=== PATIENT | female | born 1945 | race Caucasian/White ===

== ENCOUNTER 2016-12-24 08:10 | Inpatient (IN) | payer OTHER ==
[2016-12-16 13:00] VITALS: BMI 26.0
[2016-12-16 13:01] LABS: BASO % 0.4 %; BASO ABS # 0.04 K/uL (0-0.2); COMPLETE YES; HEMATOCRIT 37.7 % (37-47); IG% 0.2 %; LYMPH % 18.1 %; LYMPH ABS # 1.69 K/uL (1.2-3.4); MEAN CELL VOLUME 82.9 fL (80-100); MEAN CORPUSCULAR HEMOGLOBIN 27.7 pg (25-34); MEAN CORPUSCULAR HGB CONC 33.4 g/dl (32-36); MEAN PLATELET VOLUME 9.5 fL (7.4-10.4); MONO % 7.7 %; NEUT % 70.6 %; PLATELET COUNT 221 K/uL (130-400); RED BLOOD COUNT 4.55 M/uL (4.2-5.4); WHITE BLOOD COUNT 9.32 K/uL (4.8-10.8)
[2016-12-16 13:25] LABS: ESTIMATED AVERAGE GLUCOSE 177 mg/dl; HA1C FLAG Normal (Normal); PROTHROMBIN TIME (PATIENT) 10.2 SECONDS (9.0-12.0)
--- NOTE | 2016-12-16 13:38 | PAT Medication Instructions ---
Service Date Dec 16, 2016. Current Home Medication List Aspirin (Aspirin Ec), 81 MG PO QPM Atenolol (Tenormin), 25 MG PO Glipizide (Glipizide Er), 1 TAB PO QAM Omeprazole (Prilosec), 20 MG PO QAM Sitagliptin Phosphate (Januvia), 100 MG PO QAM Medication Instructions For Your Scheduled Surgery - Hold the following medications the morning of surgery: Glipizide (Glipizide Er), 1 TAB PO QAM Sitagliptin Phosphate (Januvia), 100 MG PO QAM - Take the following medications the morning of surgery with a sip of water: Omeprazole (Prilosec), 20 MG PO QAM - Take the following medications as scheduled the night before surgery: Aspirin (Aspirin Ec), 81 MG PO QPM (okay to continue per surgeon) Atenolol (Tenormin), 25 MG PO QPM If you have any questions please call us at [phone] or [phone] or [phone]
[2016-12-16 13:42] LABS: BUN/CREATININE RATIO 25.7 (10-20); CALCIUM 8.3 mg/dl (8.5-10.1); CREATININE 0.5 mg/dl (0.60-1.20); POTASSIUM 4.2 mmol/L (3.5-5.1)
--- NOTE | 2016-12-16 14:08 | DIAGNOSTIC IMAGING REPORT ---
CHEST PREADMISSION(PA/LAT) CLINICAL HISTORY: 71 years-old Female presenting with preoperative assessment. TECHNIQUE: PA and lateral views of the chest were obtained. COMPARISON: None. FINDINGS: Cardiomediastinal silhouette normal. Lungs and pleural spaces clear. Degenerative changes of the thoracic spine. Upper abdomen normal. IMPRESSION: 1. No acute cardiopulmonary disease. Electronically signed by: Vu Avalos M.D. 12/16/2016 2:06 PM Dictated Date/Time: 12/16/2016 2:06 PM
--- NOTE | 2016-12-23 16:50 | HISTORY & PHYSICAL EXAMINATION ---
DATE OF ADMISSION: 12/24/2016 HISTORY OF PRESENT ILLNESS: The patient presents as a very pleasant 71-year-old white female, 5 feet inches 7 and 160 pounds with complaints of ongoing left knee pain. She has been nonresponsive to conservative therapy and presents after failing attempts at conservative management including physical therapy, anti-inflammatories, relative rest, activity modification and presents with severe tricompartmental degenerative joint disease, medial compartment DJD, subchondral sclerosis, osteophyte formation, varus shift of the knee for total knee arthroplasty after thorough discussion of risks and complications. PAST MEDICAL HISTORY: Consistent that of a heart palpitations, noninsulin dependent diabetes. FAMILY HISTORY: Unremarkable and noncontributory. SOCIAL HISTORY: The patient denies history of smoking, alcohol use or recreational drug use. PAST SURGICAL HISTORY: Unremarkable. ALLERGIES: IODINE. REVIEW OF SYSTEMS: Otherwise unremarkable. See history of present illness for pertinent positives. PHYSICAL EXAMINATION: GENERAL: A very pleasant 71-year-old white female, alert and oriented x3. HEENT: Atraumatic, normocephalic. HEART: Regular at 70 beats per minute. No murmurs noted. LUNGS: Clear without rales, rhonchi or wheeze noted. ABDOMEN: Soft, nontender, nondistended. Bowel sounds are present in all 4 quadrants. RECTAL: No rectal examination was performed. MUSCULOSKELETAL: Consistent with that of severe end-stage DJD about left knee with varus alignment. The patient has failed attempts at conservative management. PLAN: Total knee arthroplasty, postoperative pain management, DVT prophylaxis, antibiotics as noted above.
[~2016-12-24] VITALS: Ht 170.2 cm; Wt 76.0 kg
[~2016-12-24 08:10] MED LIST: ACETAMINOPHEN 500 MG TAB PO SCH; ASPI81TA28 PO; ATEN-173 PO; BUPIVACAINE 0.25% 30 ML VIAL ONE; BUPIVACAINE 0.5 % 5 MG/1 ML PF 10ML VIAL ONE; CEFAZOLIN 1000MG/55 ML D5W 55 ML IV SCH; CeleBREX 200 MG CAP PO SCH; DEXAMETHASONE 4 MG TAB PO SCH; FAMOTIDINE 20 MG TAB PO SCH; GABAPENTIN 300 MG CAP PO SCH; GLIP2.5T11 PO; LACTATED RINGER'S 1000ML 1,000 ML IV SCH; LACTATED RINGER'S 1000ML 500 ML IV ONE; LACTATED RINGER'S 1000ML IV SCH; METOCLOPRAMIDE HCL 10 MG TAB PO SCH; PRLSR20 PO; ROPIVACAINE 5MG/ML 30 ML 150 MG, BUPIVACAINE/EPINEPHR 0.5% MPF 30 ML, KETOROLAC TROMETH... INFIL SCH; SITA100T3 PO
--- NOTE | 2016-12-24 08:12 | History & Physical Bridge Note ---
H&P Re-Evaluation Bridge Note: I have examined the patient, reviewed the History & Physical and in the interval since the performance of the History & Physical I have noted the following changes of clinical significance: No changes noted
[2016-12-24 09:21] VITALS: BP 136/66; PULSE 71; TEMP 36.9; O2SAT 100; Ht 170.2 cm; Wt 76.0 kg
[2016-12-24] MEDS ORDERED: MIDAZOLAM HCL 1 MG/ML 2ML VIAL ONE (12:27)
[2016-12-24] MEDS ORDERED: LIDOCAINE HCL 2% 2 ML VIAL (20MG/ML) ONE (12:27)
[2016-12-24] MEDS ORDERED: PROPOFOL IV EMULSION 10 MG/ML 20 ML VIAL IV ONE (12:27)
[2016-12-24] MEDS ORDERED: DEXAMETHASONE SOD INJ 4 MG/ML VIAL ONE (12:27)
[2016-12-24] MEDS ORDERED: ONDANSETRON INJ 2 MG/ML 2 ML VIAL ONE (12:27)
[2016-12-24] MEDS ORDERED: FENTANYL CITRATE INJ 50 MCG/1 ML 2 ML VIAL ONE (12:27)
[2016-12-24] MEDS ORDERED: POVIDONE-IODINE OP SOLN 30 ML BTL ONE (12:32)
[2016-12-24] MEDS ORDERED: BACITRACIN 50000 UNIT VIAL ONE (12:32)
[2016-12-24] MEDS ORDERED: ORTHO JOINT ANESTHETIC ONE (12:32)
[2016-12-24] MEDS: TRANEXAMIC ACID INJ 1,000 MG in SODIUM CHLORIDE 0.9% 100ML 100 ML IV SCH ×2 (13:41→17:45)
[2016-12-24] MEDS ORDERED: LABETALOL HCL IV 5 MG/ML 20ML IV PRN (14:15)
[2016-12-24] MEDS ORDERED: HYDROmorphone INJ 1 MG/ML SYR IV PRN (14:15)
[2016-12-24] MEDS ORDERED: PROMETHAZINE HCL INJ 12.5 MG in SODIUM CHLORIDE 0.9% 50ML 50 ML IV PRN (14:15)
[2016-12-24] MEDS ORDERED: NALOXONE HCL 0.4 MG/1 ML VIAL/CARP IV PRN (14:15)
[2016-12-24] MEDS ORDERED: FLUMAZENIL 0.1 MG/1 ML 10 ML VIAL IV PRN (14:15)
[2016-12-24] MEDS ORDERED: EpHEDrine SULFATE INJ 50 MG/ML AMP IV PRN (14:15)
[2016-12-24] MEDS ORDERED: ONDANSETRON INJ 2 MG/ML 2 ML VIAL IV PRN ×2 (14:15→15:45)
[2016-12-24] MEDS ORDERED: ATROPINE SULFATE 0.1 MG/ML 5ML SYR IV PRN (14:15)
[2016-12-24] MEDS ORDERED: GLYCOPYRROLATE INJ 0.2 MG/ML VIAL ONE (14:33)
--- NOTE | 2016-12-24 15:01 | [facility] Operative Report ---
Operative Report Operative Date Dec 24, 2016. Pre-Operative Diagnosis Left Knee Degeneratve Joint Disease Post-Operative Diagnosis Same as preop Procedure(s) Performed Left Total Knee Arthroplasty utilizing Howell & Nephew journey 2 patient matched total knee arthroplasty size 4 femur to tibia 12 poly-[address] 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 Left Knee Bone and Tissue Complication(s) None Disposition Recovery Room / PACU Indications Severe end-stage tricompartmental degenerative joint disease left knee plan surgery patient was noted to have varus alignment subchondral cystic changes osteophytosis sclerosis patient's failed attempts at conservative management presents for total knee arthroplasty Description of Procedure After proper prepping and draping of the left lower extremity anterior midline incision was made over the region of the extensor extensor mechanism after meticulous hemostasis was obtained and maintained in subcutaneous tissues a medial parapatellar incision was made The patella was subluxed lateralward the medial lateral gutter were cleaned from any hypertrophic synovitis and scar tissue of the distal femoral block was placed and the distal femoral osteotomy cut was made subsequently the chamfers anterior and posterior osteotomy cuts were made utilizing the 4-in-1 block the tibia was subsequently subluxed anteriorward medial and ateral meniscal remnants were excised in their entirety remnants of the anterior and posterior cruciate ligaments were excised in their entirety excellent exposure of the proximal tibia was obtained the tibial osteotomy guide was placed on the proximal tibial osteotomy cut was made once again the knee was irrigated with copious amounts of sterile saline solution the patella was subsequently everted lateralward thickened scar tissue around the patella was removed the patella was subsequently cut utilizing a freehand technique and was drilled prepared for final preparation and placement of patella socially flexion-extension gaps were checked and the equal and symmetric trials were placed to the appropriate femoral and tibial trials with poly-spacer being placed for equal flexion and extension gaps and full range of motion including extension to 0 and flexion to 140 the trial components after having been taken to recovery range of motion was subsequently removed meticulous hemostasis was obtained and maintained subsequently a knee block injection of joint cocktail including ropivacaine 0.5% 150 mg. Bupivacaine 0.5 % epinephrine 1-200,030 mL's toradol 30 mg dexamethasone 4 mg ketamine 10 mg clonidine 100 micrograms normal saline solution 30 mg was infiltrated into the soft tissues of the posterior knee medial lateral gutters and periosteal synovium special attention was paid to protect neurovascular structures at all times subsequently trial components having been removed the knee was irrigated with sterile saline solution. debris was removed the proximal tibia was subsequently prepared and was made ready for the placement of the tibial component tibial component was also cemented and tamped into position the femoral component was subsequently placed and cemented in the position the patellar component was subsequently cemented in position because hemostasis once again obtained and maintained wound having been thoroughly irrigated with debridement and debridement lavage was performed as well as a medial parapatellar incision closed with #1 Vicryl in interrupted fashion subcutaneous was closed with #2 Vicryl skin was closed with skin clips. PA-C was necessary for prepping and drapping as well as wound closure of deep fascia Sub cutaneous tissue and skin and was necessary for the case. A sterile compressive dressing was placed patient was taken to recovery in stable condition of report dictated by Polo I attest to the content of the Intraoperative Record and any orders documented therein. Any exceptions are noted below. I attest to the content of the Intraoperative Record and any orders documented therein. Any exceptions are noted below.
[2016-12-24] MEDS ORDERED: MAGNESIUM HYDROXIDE SUSP 30 ML UDC PO PRN (15:45)
[2016-12-24] MEDS ORDERED: MoRPHine SULFATE 2 MG/ML CARP IV PRN (15:45)
[2016-12-24] MEDS ORDERED: BISACODYL 10 MG SUPP PR PRN (15:45)
[2016-12-24] MEDS ORDERED: TRAMADOL HCL 50 MG TAB PO PRN (15:45)
[2016-12-24] MEDS ORDERED: MoRPHine SULFATE 4 MG/ML 1 ML CARP\\VIAL IV PRN (15:45)
[2016-12-24] MEDS ORDERED: ALUMINUM/MAGNESIUM/SIMETH (MAALOX MAX) 30 ML UDC PO PRN (15:45)
--- NOTE | 2016-12-24 16:15 | DIAGNOSTIC IMAGING REPORT ---
LEFT KNEE 1 OR 2 VIEWS ROUTINE CLINICAL HISTORY: AP/LATERAL IN PACU LEFT KNEE joint replacement COMPARISON: None. DISCUSSION: Anatomic alignment status post total left knee replacement. Surgical drains are in position. Expected soft tissue postoperative change IMPRESSION: Anatomic alignment status post total left knee replacement The above report was generated using voice recognition software. It may contain grammatical, syntax or spelling errors. Electronically signed by: Nando Cadet M.D. 12/24/2016 4:13 PM Dictated Date/Time: 12/24/2016 4:13 PM
--- NOTE | 2016-12-24 16:48 | Anesthesiology Progress Note ---
Anesthesia Post Op Note Date & Time Dec 24, 2016 at 16:48 Vital Signs Pain Intensity: 0 Vital Signs Past 12 Hours Date Time Temp Pulse Resp B/P (MAP) Pulse Ox O2 Delivery O2 Flow Rate FiO2 12/24/16 16:40 36.4 90 13 123/69 98 Nasal Cannula 2 12/24/16 16:30 86 14 129/72 98 Nasal Cannula 2 12/24/16 16:20 92 16 130/68 97 Nasal Cannula 2 12/24/16 16:10 87 12 127/63 97 Nasal Cannula 2 12/24/16 16:00 80 16 123/56 97 Nasal Cannula 2 12/24/16 15:50 88 12 122/60 97 Nasal Cannula 2 12/24/16 15:40 86 12 112/60 99 Oxymask 10 12/24/16 15:34 36.2 85 12 116/59 99 Oxymask 10 12/24/16 09:21 36.9 71 18 136/66 100 Room Air Notes Mental Status: alert / awake / arousable, participated in evaluation Pt Amnestic to Procedure: Yes Nausea / Vomiting: adequately controlled Pain: adequately controlled Airway Patency, RR, SpO2: stable & adequate BP & HR: stable & adequate Hydration State: stable & adequate Neuraxial Anesthesia: was administered, sensory block is resolving Anesthetic Complications: no major complications apparent
[2016-12-24 17:10] VITALS: BP 128/69; PULSE 97; TEMP 36.5; O2SAT 98
[2016-12-24 17:40] VITALS: BP 147/74; PULSE 86; O2SAT 98
[2016-12-24] MEDS: SODIUM CHLORIDE 0.9% 1000ML 1,000 ML IV SCH (17:44)
[2016-12-24] MEDS: FERROUS GLUCONATE 324 MG TAB PO SCH (18:18)
[2016-12-24] MEDS: ACETAMINOPHEN 500 MG TAB PO SCH ×2 (18:19→23:47)
[2016-12-24] MEDS: INSULIN ASPART 100 UNITS/ML 3 ML PEN SC SCH ×2 (18:30→21:36)
[2016-12-24 19:10] VITALS: BP 99/64; PULSE 70; O2SAT 98
[2016-12-24 20:10] VITALS: BP 118/69; PULSE 90; O2SAT 98
[2016-12-24] MEDS: ASPIRIN 81 MG ECTAB PO SCH (21:31)
[2016-12-24] MEDS: DOCUSATE SODIUM 100 MG CAP PO SCH (21:31)
[2016-12-24] MEDS: CeleBREX 200 MG CAP PO SCH (21:32)
[2016-12-24] MEDS: SENNA 8.6 MG TAB PO SCH (21:32)
[2016-12-24] MEDS: CEFAZOLIN IV 1,000 MG in DEXTROSE 5% 50ML 50 ML IV SCH (21:33)
[2016-12-24 22:50] VITALS: BP 113/65; PULSE 65; TEMP 36.6; O2SAT 96
[2016-12-25] MEDS: SODIUM CHLORIDE 0.9% 1000ML 1,000 ML IV SCH ×2 (01:49→11:48)
[2016-12-25 03:53] VITALS: BP 114/64; PULSE 68; TEMP 36.5; O2SAT 98
[2016-12-25] MEDS: OXYCODONE HCL IR 5 MG TAB (IMMEDIATE RELEASE) PO PRN ×2 (04:01→14:21)
[2016-12-25] MEDS: CEFAZOLIN IV 1,000 MG in DEXTROSE 5% 50ML 50 ML IV SCH (06:07)
[2016-12-25] MEDS: ACETAMINOPHEN 500 MG TAB PO SCH ×2 (06:07→17:47)
[2016-12-25 07:06] VITALS: BP 138/69; PULSE 66; TEMP 36.5; O2SAT 100
[2016-12-25 07:30] LABS: HEMATOCRIT 31.1 % (37-47); MEAN CELL VOLUME 82.3 fL (80-100); MEAN CORPUSCULAR HGB CONC 32.8 g/dl (32-36); MEAN PLATELET VOLUME 9.3 fL (7.4-10.4); PLATELET COUNT 228 K/uL (130-400); RED BLOOD COUNT 3.78 M/uL (4.2-5.4); WHITE BLOOD COUNT 17.35 K/uL (4.8-10.8)
[2016-12-25 07:56] LABS: BUN/CREATININE RATIO 18.8 (10-20); CALCIUM 8.5 mg/dl (8.5-10.1); CREATININE 0.8 mg/dl (0.60-1.20); POTASSIUM 3.8 mmol/L (3.5-5.1)
[2016-12-25] MEDS ORDERED: PNEUMOCOCCAL POLYSACCHARIDES 25 MCG/0.5 ML VIAL/SYR IM. ONE (08:00)
[2016-12-25] MEDS ORDERED: PNEUMOCOCCAL ADMINISTRATION CHARGE ONE (08:00)
[2016-12-25] MEDS: INSULIN ASPART 100 UNITS/ML 3 ML PEN SC SCH ×4 (08:28→21:00)
[2016-12-25] MEDS: FERROUS GLUCONATE 324 MG TAB PO SCH ×3 (08:38→17:45)
[2016-12-25] MEDS: CeleBREX 200 MG CAP PO SCH ×2 (08:39→21:47)
[2016-12-25] MEDS: DOCUSATE SODIUM 100 MG CAP PO SCH ×2 (08:39→21:47)
[2016-12-25] MEDS: ASPIRIN 81 MG ECTAB PO SCH ×2 (08:39→21:47)
[2016-12-25] MEDS: SITAGLIPTIN 100 MG TAB PO SCH (08:40)
[2016-12-25] MEDS: MULTIVITAMIN TAB PO SCH (08:40)
[2016-12-25] MEDS ORDERED: PANTOprazole SOD 40 MG TAB PO SCH (09:00)
--- NOTE | 2016-12-25 09:52 | Orthopedic Progress Note ---
Orthopedic Progress Note Date of Service Dec 25, 2016. Subjective Post OP Day: 1 (s/p Left TKA) Reports: feeling well, pain controlled w PO medications, Denies: complaints, chest pain, SOB, nausea / vomiting, light headedness, calf pain Objective calves soft nontender, N/V intact, capillary refill less than 2 sec., dressing C /D/I, A&O x3, toes mobile, hemovac drainage (200cc/8 hours) Date Time Temp Pulse Resp B/P (MAP) Pulse Ox O2 Delivery O2 Flow Rate FiO2 12/25/16 07:06 36.5 66 19 138/69 (92) 100 Room Air 12/25/16 03:53 36.5 68 18 114/64 (81) 98 Room Air 12/24/16 23:40 Room Air 12/24/16 22:50 36.6 65 18 113/65 (81) 96 Room Air 12/24/16 20:10 90 20 118/69 (85) 98 Nasal Cannula 2.0 12/24/16 19:10 70 20 99/64 (76) 98 Nasal Cannula 2.0 12/24/16 17:40 86 18 147/74 (98) 98 Nasal Cannula 2.0 12/24/16 17:10 98 Nasal Cannula 2.0 12/24/16 17:10 36.5 97 17 128/69 (88) 98 Nasal Cannula 2.0 12/24/16 17:10 98 Nasal Cannula 2.0 12/24/16 17:00 37.2 92 16 135/69 97 Nasal Cannula 2 12/24/16 16:50 90 14 126/68 97 Nasal Cannula 2 12/24/16 16:40 36.4 90 13 123/69 98 Nasal Cannula 2 12/24/16 16:30 86 14 129/72 98 Nasal Cannula 2 12/24/16 16:20 92 16 130/68 97 Nasal Cannula 2 12/24/16 16:10 87 12 127/63 97 Nasal Cannula 2 12/24/16 16:00 80 16 123/56 97 Nasal Cannula 2 12/24/16 15:50 88 12 122/60 97 Nasal Cannula 2 12/24/16 15:40 86 12 112/60 99 Oxymask 10 12/24/16 15:34 36.2 85 12 116/59 99 Oxymask 10 Laboratory Results 24 Hours: Test 12/25/16 07:07 Hematocrit 31.1 % Hemoglobin 10.2 g/dL Assessment & Plan Assessment: POD #1 s/p left TKA -pt/ot -dvt proph with betty/scd/asa -silverlon dressing -plan for d/c home with HHPT when stable Diabetes- on SSI Discharge Planning Discharge Planning: home with home health DVT Prophylaxis: TEDs, SCDs, ASA Therapy: Physical Therapy
--- NOTE | 2016-12-25 09:53 | Discharge Instructions ---
Discharge Instructions Date of Service Dec 25, 2016. Admission Reason for Admission: Left Knee Osteoarthritis Discharge Discharge Diagnosis / Problem: Left Total Knee Replacement Discharge Goals Goal(s): Decrease discomfort, Improve function, Increase independence Activity Recommendations Activity Limitations: as noted below Weightbearing Status: Left weightbearing (as tolerated) . Instructions / Follow-Up Instructions / Follow-Up ACTIVITY RECOMMENDATIONS: SELF CARE INSTRUCTIONS AFTER TOTAL KNEE REPLACEMENT A. You may need to continue a physical therapy program after discharge from the hospital. There are several options available to you. Your doctor will assist you in selecting the best one for you. 1. An out-patient facility 2 to 3 times a week for therapy or home therapy. 2. Continue working on all exercises taught to you in the hospital. Your goals should be to increase bending of your knee to 90 degrees and beyond and to fully straighten your knee. B. You may progress at your own pace from walking with a walker or crutches to a cane; then to no assistive devices. C. Make walking a part of your daily routine. Be up as much as comfortable with rest periods throughout the day. Rest with leg elevation is very important. Use the ice wrap frequently for the first 3-4 weeks. D. There are no restrictions on activities. You may ride in a car, shop, participate in precision lens generator and all social activities. E. Wear the long elastic stockings (FIONA hose) 20 hours a day for 2 weeks after surgery. They can be removed several times a day for laundering and for a bath. F. You may shower, no tub baths until cleared by your doctor. SPECIAL CARE INSTRUCTIONS: VERY IMPORTANT TO READ AND REVIEW A. There are a few signs you need to watch for after you are home. Call [facility] [place] if you notice any of the followin. Increased severe knee pain. Some pain is expected especially when you exercise. 2. Increased swelling in your leg or knee; pain or swelling of the calf muscle in either lower leg. 3. Any fluid drainage from the incision. 4. Shortness of breath or chest pain. B. Please call [facility] at if you have any concerns or questions about your operation or recovery. The doctor or his nurse will return your call promptly. C. You must take antibiotics before dental work, bladder, bowel or other surgery. Your doctor will provide you with a permanent care to carry describing this precaution. IMPORTANT: * REMEMBER TO TAKE ASPIRIN, 81 MG, TWICE DAILY FOR 4 WEEKS UNLESS OTHERWISE DIRECTED. THIS IS YOUR BLOOD THINNER. * HIGH RISK PATIENTS MAY BE PRESCRIBED A STRONGER BLOOD THINNER. THIS WILL BE PROVIDED AT DISCHARGE. * CALL IF INCREASED PAIN, REDNESS, DRAINAGE OR FEVER GREATER THAT 101. * WEAR FIONA HOSE 20 HOURS PER DAY FOR 2 WEEKS. * YOU MAY HAVE A LARGE BAND-AID LIKE DRESSING (SILVERON). THIS WILL REMAIN ON YOUR INCISION FOR 7 DAYS, THEN CAN BE REMOVED. IF INCISION IS LEAKING THROUGH DRESSING, CALL THE OFFICE . FOLLOW UP VISIT: If appointment is not already scheduled: Please call [facility] [place] to make a follow-up appointment for 2 weeks after your surgery at . Current Hospital Diet Patient's current hospital diet: Diabetes Type 2 Diet Discharge Diet Recommended Diet: Diabetes Type 2 Diet Procedures Procedures Performed: Left Total Knee Arthroplasty utilizing Howell & [place]ph[place] journey 2 patient matched total knee arthroplasty size 4 femur to tibia 12 poly-29 oval patella Pending Studies Studies pending at discharge: no Laboratory Results Hemoglobin A1c Test 12/16/16 12:36 Range/Units Estimated Average Glucose 177 mg/dl Hemoglobin A1c 7.8 H 4.5-5.6 % Medical Emergencies . Who to Call and When: Medical Emergencies: If at any time you feel your situation is an emergency, please call 911 immediately. . Non-Emergent Contact Non-Emergency issues call your: Primary Care Provider, Surgeon . "Provider Documentation" section prepared by Nando Mcghee. . VTE Core Measure Inpt VTE Proph given/why not?: Other Anticoagulation (ASA 81mg po bid x 1 month ), Leigh Chilel, SCD's [place] Drug Monitoring Program Search Results: patient reviewed within database, no issues identified
[2016-12-25 11:42] VITALS: BP 120/69; PULSE 74; O2SAT 96
[2016-12-25 15:21] VITALS: BP 125/62; PULSE 64; TEMP 36.7; O2SAT 96
[2016-12-25] MEDS: SENNA 8.6 MG TAB PO SCH (21:47)
[2016-12-25 23:50] VITALS: BP 104/59; PULSE 67; TEMP 36.8; O2SAT 95
[2016-12-26] MEDS: ACETAMINOPHEN 500 MG TAB PO SCH ×2 (01:44→10:28)
[2016-12-26] MEDS: OXYCODONE HCL IR 5 MG TAB (IMMEDIATE RELEASE) PO PRN ×2 (01:44→12:02)
[2016-12-26 06:56] VITALS: BP 104/59; PULSE 66; TEMP 36.6; O2SAT 96
--- NOTE | 2016-12-26 07:15 | Orthopedic Progress Note ---
Orthopedic Progress Note Date of Service Dec 26, 2016. Subjective Post OP Day: 2 Reports: feeling well, pain controlled w PO medications, Denies: complaints, chest pain, SOB, nausea / vomiting, light headedness, calf pain Objective calves soft nontender, N/V intact, capillary refill less than 2 sec., dressing C /D/I (silverlon intact), A&O x3, toes mobile Date Time Temp Pulse Resp B/P (MAP) Pulse Ox O2 Delivery O2 Flow Rate FiO2 12/26/16 06:56 36.6 66 17 104/59 (74) 96 Room Air 12/26/16 00:30 Room Air 12/25/16 23:50 36.8 67 16 104/59 (74) 95 Room Air 12/25/16 15:30 Room Air 12/25/16 15:21 36.7 64 18 125/62 (83) 96 Room Air 12/25/16 11:42 74 96 12/25/16 08:00 Room Air Assessment & Plan Assessment: POD #2 s/p left TKA -pt/ot -dvt proph with betty/scd/asa -silverlon dressing -plan for d/c home with HHPT when stable Diabetes- on SSI Discharge Planning Discharge Planning: home with home health DVT Prophylaxis: TEDs, SCDs, ASA Therapy: Physical Therapy
[2016-12-26] MEDS ORDERED: RXC5 PO (07:19)
[2016-12-26] MEDS ORDERED: CLB200 PO (07:19)
[2016-12-26] MEDS ORDERED: ULT50X PO (07:19)
[2016-12-26] MEDS ORDERED: ACET-24 PO (07:19)
[2016-12-26] MEDS ORDERED: CLC100 PO (07:19)
[2016-12-26] MEDS ORDERED: ONDA8TAB6 PO (07:19)
[2016-12-26] MEDS ORDERED: ASPEC81 PO (07:19)
[2016-12-26] MEDS: INSULIN ASPART 100 UNITS/ML 3 ML PEN SC SCH ×2 (08:00→12:00)
[2016-12-26] MEDS: ASPIRIN 81 MG ECTAB PO SCH (08:55)
[2016-12-26] MEDS: DOCUSATE SODIUM 100 MG CAP PO SCH (08:55)
[2016-12-26] MEDS: MULTIVITAMIN TAB PO SCH (08:56)
[2016-12-26] MEDS: CeleBREX 200 MG CAP PO SCH (08:56)
[2016-12-26] MEDS: FERROUS GLUCONATE 324 MG TAB PO SCH (08:56)
[2016-12-26] MEDS: SITAGLIPTIN 100 MG TAB PO SCH (08:57)
[2016-12-26] MEDS ORDERED: OMEPRAZOLE 20 MG PO SCH (09:00)
[2016-12-26 09:06] VITALS: BP 108/68; PULSE 77
[2016-12-26 09:53] VITALS: BP 103/64
[2016-12-26 10:54] VITALS: BP 108/68; PULSE 77; TEMP 36.6; O2SAT 96
--- NOTE | 2016-12-31 12:25 | Discharge Summary ---
Orthopedic Discharge Summary Admission Date/Reason Dec 24, 2016 at 12:55 Left Knee Osteoarthritis. Discharge Date/Disposition Dec 26, 2016 Home with services Diagnosis Principal Diagnosis: Left Knee Osteoarthritis Secondary Diagnoses/Problems: DM 2; h/o Irregular Heart Procedure(s) Performed Left TKA Medication Reconciliation New Medications: Ondansetron Hcl (Zofran) 8 Mg Tab 8 MG PO Q8 PRN for Nausea, #20 TAB Acetaminophen (Sb Non-Aspirin Extra Stre) 500 Mg Tab 1000 MG PO Q8@0200,1000,1800, #126 TAB Aspirin (Aspirin EC Low Dose) 81 Mg Ectab 81 MG PO BID for 30 Days, #60 TAB Celecoxib (Celebrex) 200 Mg Cap 200 MG PO BID for 30 Days, #60 CAP Docusate Sodium (Docusate Sodium) 100 Mg Cap 100 MG PO BID for 10 Days, #20 CAP Oxycodone HCl (Oxycodone HCl) 5 Mg Tab 5-10 MG PO Q4H PRN for Pain, #60 TAB Tramadol HCl (Tramadol HCl) 50 Mg Tab 50-100 MG PO Q4H PRN for Pain, #60 TAB Continued Medications: Atenolol (Tenormin) 25 Mg Tab 25 MG PO, TAB WAS NOT ABLE TO GET FILL DUE TO SHORTAGE AND WILL BE GETTING IT FILLED IN THE FEW DAYS TAKES FOR PALPATATION Glipizide (Glipizide Er) 2.5 Mg Tab 1 TAB PO QAM, TAB 3 Refills Omeprazole (Prilosec) 20 Mg Capcr 20 MG PO QAM, CAP Sitagliptin Phosphate (Januvia) 100 Mg Tab 100 MG PO QAM, TAB Discontinued Medications: Aspirin (Aspirin Ec) 81 Mg Tab 81 MG PO QPM Admission Physical Exam As per Admitting History & Physical. Hospital Course The Patient had an uneventful hospital course. Labs remained stable- lowest hemoglobin recorded: 10.2 . Pain controlled on oral medications. Participated in PT with ambulation distance of 150 feet. ROM of operative knee reached 88 degrees. Drainage output totaled 625 cc prior to discontinuation. Patient did not have a reported bowel movement. Incision remained clean/dry/ intact. DVT prophylaxis with Aspirin EC 81mg BID x 30 days/[facility] stockings. Patient discharged home with Home Health Services in stable condition. Please refer to daily progress notes for further details. Discharge Instructions Please refer to the electronic Patient Visit Report (Discharge Instructions) for additional information.
== END 2016-12-26 12:23 | disposition home health service (06) | DRG 470 ==
LOC: C.ACU 08:10 → C.3E 12:55 → ENRESERV 16:49
PROVIDERS: ADMIT Orthopaedic Surgery; ATTEND Orthopaedic Surgery
PROC: 0SRD0J9 Replacement of Left Knee Joint with Synthetic Substitute, Cemented, Open Approach (ICD-10-PCS; principal; 2016-12-24 11:00)
DX: M17.12 Unilateral primary osteoarthritis, left knee (principal); E11.9 Type 2 diabetes mellitus without complications; R00.2 Palpitations; K21.9 Gastro-esophageal reflux disease without esophagitis; Z79.82 Long term (current) use of aspirin; Z79.84 Long term (current) use of oral hypoglycemic drugs; Z79.899 Other long term (current) drug therapy

== ENCOUNTER → 2017-01-24 | Outpatient (CLI) | payer OTHER ==
[~2017-01-24] MED LIST changes: +ACET-24 PO; -ACETAMINOPHEN 500 MG TAB PO SCH; +ASPEC81 PO; -ASPI81TA28 PO; -BUPIVACAINE 0.25% 30 ML VIAL ONE; -BUPIVACAINE 0.5 % 5 MG/1 ML PF 10ML VIAL ONE; -CEFAZOLIN 1000MG/55 ML D5W 55 ML IV SCH; +CLB200 PO; +CLC100 PO; -CeleBREX 200 MG CAP PO SCH; -DEXAMETHASONE 4 MG TAB PO SCH; -FAMOTIDINE 20 MG TAB PO SCH; -GABAPENTIN 300 MG CAP PO SCH; -LACTATED RINGER'S 1000ML 1,000 ML IV SCH; -LACTATED RINGER'S 1000ML 500 ML IV ONE; -LACTATED RINGER'S 1000ML IV SCH; -METOCLOPRAMIDE HCL 10 MG TAB PO SCH; +ONDA8TAB6 PO; -ROPIVACAINE 5MG/ML 30 ML 150 MG, BUPIVACAINE/EPINEPHR 0.5% MPF 30 ML, KETOROLAC TROMETH... INFIL SCH; +RXC5 PO; +TRAM-10 PO; +ULT50X PO; +oxycodone PO
[2017-01-24 15:50] LABS: BASO % 0.3 %; BASO ABS # 0.03 K/uL (0-0.2); COMPLETE YES; EOS % 3.7 %; IG% 0.3 %; LYMPH % 15.6 %; LYMPH ABS # 1.53 K/uL (1.2-3.4); MEAN CELL VOLUME 82.2 fL (80-100); MEAN CORPUSCULAR HEMOGLOBIN 26.3 pg (25-34); MEAN CORPUSCULAR HGB CONC 31.9 g/dl (32-36); MEAN PLATELET VOLUME 9.5 fL (7.4-10.4); MONO % 7.7 %; NEUT % 72.4 %; PLATELET COUNT 265 K/uL (130-400); RED BLOOD COUNT 3.77 M/uL (4.2-5.4); WHITE BLOOD COUNT 9.78 K/uL (4.8-10.8)
[2017-01-24 15:57] LABS: PROTHROMBIN TIME (PATIENT) 10.3 SECONDS (9.0-12.0)
--- NOTE | 2017-01-24 16:04 | DIAGNOSTIC IMAGING REPORT ---
CHEST 2 VIEWS ROUTINE CLINICAL HISTORY: Preoperative chest COMPARISON STUDY: 12/16/2016 FINDINGS: The heart is at the upper limits of normal in size. There is no failure. There is no focal pulmonary consolidation. No pleural effusions are visualized. There is a mild pectus deformity.[ IMPRESSION: No active disease in the chest. Electronically signed by: Yury Fuentes M.D. 01/24/2017 4:03 PM Dictated Date/Time: 01/24/2017 4:03 PM
[2017-01-24 16:11] LABS: BLOOD UREA NITROGEN 17 mg/dl (7-18); BUN/CREATININE RATIO 34.7 (10-20); CALCIUM 8.7 mg/dl (8.5-10.1); CARBON DIOXIDE 27 mmol/L (21-32); CHLORIDE 105 mmol/L (98-107); CREATININE 0.48 mg/dl (0.60-1.20); GLUCOSE 90 mg/dl (70-99); POTASSIUM 3.9 mmol/L (3.5-5.1); SODIUM 138 mmol/L (136-145)
[2017-01-25 06:58] LABS: ESTIMATED AVERAGE GLUCOSE 111 mg/dl; HA1C FLAG Normal (Normal)
== END | disposition home or self-care (01) ==
LOC: C.CPL 14:59
PROVIDERS: ATTEND Orthopaedic Surgery
DX: S76.112D Strain of left quadriceps muscle, fascia and tendon, subsequent encounter (principal); X58.XXXD Exposure to other specified factors, subsequent encounter

== ENCOUNTER 2017-03-26 06:31 | Inpatient (IN) | payer OTHER ==
[2017-03-25 09:03] VITALS: BMI 25.0
--- NOTE | 2017-03-25 10:46 | History and Physical ---
History & Physical Date Mar 25, 2017. Chief Complaint Patient presents is a 71-year-old white female complaints of weakness but her left leg after having sustained quad ruptures. She had repair going home had no subsequent fall hyperflexion episode presents with a re-tear of previously repaired quad rupture for revision repair History of Present Illness The patient is a 71 year old female with complaints of Past Medical/Surgical History Medical Problems: (1) Left knee DJD Additional History Hepatic Disease: No Endocrine Disorder: No Kidney Disease: No Hypertension: No Heart Disease: Bleeding Tendencies: No Infectious Diseases: No Allergies Coded Allergies: Buckwheat (Verified Allergy, Severe, CANAS WHEAT FLOUR - TONGUE AND THROAT SWELLING, 03/25/17) Iodine (Verified Allergy, Mild, HOT FEELING- WITH IVP DYE, 03/25/17) SPOUSE SAYS PT HAS NOT HAD TOPICAL IODINE Shellfish (Verified Allergy, Unknown, GI UPSET, 03/25/17) Home Medications Scheduled Aspirin (Aspirin Ec), 81 MG PO QAM Cefuroxime Axetil (Cefuroxime Axetil), 1 TAB PO BID Donepezil Hydrochloride (Donepezil Hcl), 1 TAB PO QPM Gabapentin (Neurontin), 300 MG PO QPM Glipizide (Glipizide Er), 1 TAB PO QAM Omeprazole (Prilosec), 20 MG PO QAM Sertraline (Zoloft), 50 MG PO QPM Sitagliptin Phosphate (Januvia), 100 MG PO QAM Scheduled PRN Metoprolol Succ (Toprol Xl) (Toprol-Xl), 25 MG PO DAILY PRN for PRN Physical Examination Skin: warm/dry, no rash Eyes: normal inspection, EOMI, sclerae normal ENT: normal ENT inspection, pharynx normal Head: normocephalic, atraumatic Neck: supple, no adenopathy, trachea midline Respiratory/Chest: lungs clear, normal breath sounds, no respiratory distress Cardiovascular: regular rate, rhythm, no edema, no murmur Abdomen / GI: normal bowel sounds, non tender Back: normal inspection Extremities: normal inspection, normal range of motion Neurologic/Psych: no motor/sensory deficits, alert, normal reflexes, oriented x 3 Diagnosis 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 brace locked in full extension postoperative antibiotics physical therapy possible rehabilitation
[2017-03-26] VITALS (8 sets, daily range): BP systolic 110–128; BP diastolic 62–74; PULSE 61–78; TEMP 36.5–36.7; O2SAT 94–100; Ht 170.2 cm; Wt 75.0 kg
[~2017-03-26] VITALS: Ht 170.2 cm; Wt 75.0 kg
[~2017-03-26 06:31] MED LIST changes: -ACET-24 PO; -ASPEC81 PO; +ASPI81TA28 PO; -ATEN-173 PO; +CEFAZOLIN 1000MG IV PUSH 5 ML IV SCH; +CEFU1TAB36 PO; -CLB200 PO; -CLC100 PO; +DONE1TAB11 PO; +GABA-113 PO; +LACTATED RINGER'S 1000ML 1,000 ML IV SCH; +METO25TA3 PO; -ONDA8TAB6 PO; -RXC5 PO; +SERT50TA PO; -TRAM-10 PO; -ULT50X PO; -oxycodone PO
[2017-03-26] MEDS ORDERED: BUPIVACAINE 0.5 % 5 MG/1 ML PF 10ML VIAL ONE ×2 (06:33→08:06)
[2017-03-26] MEDS ORDERED: METO25TA3 PO (07:29)
[2017-03-26] MEDS ORDERED: EpHEDrine SULFATE INJ 50 MG/ML AMP IV PRN ×2 (07:30→08:30)
[2017-03-26] MEDS ORDERED: CYAN500T PO (07:30)
[2017-03-26] MEDS ORDERED: ATROPINE SULFATE 0.1 MG/ML 5ML SYR IV PRN ×2 (07:30→08:30)
[2017-03-26] MEDS ORDERED: DTR/5 PO (07:30)
[2017-03-26] MEDS ORDERED: FENTANYL CITRATE INJ 50 MCG/1 ML 2 ML VIAL IV PRN ×2 (07:30→08:30)
[2017-03-26] MEDS ORDERED: ONDANSETRON INJ 2 MG/ML 2 ML VIAL IV PRN ×3 (07:30→10:45)
[2017-03-26] MEDS ORDERED: MIDAZOLAM HCL 1 MG/ML 2ML VIAL ONE (07:48)
[2017-03-26] MEDS ORDERED: FENTANYL CITRATE INJ 50 MCG/1 ML 2 ML VIAL ONE (07:49)
[2017-03-26] MEDS ORDERED: BACITRACIN 50000 UNIT VIAL ONE (09:13)
[2017-03-26] MEDS ORDERED: PROPOFOL IV EMULSION 10 MG/ML 20 ML VIAL IV ONE (09:34)
[2017-03-26] MEDS ORDERED: LIDOCAINE HCL 2% 2 ML VIAL (20MG/ML) ONE (09:34)
[2017-03-26] MEDS ORDERED: ARTIFICIAL TEARS OP OINT 3.5 GM TUBE ONE (09:34)
--- NOTE | 2017-03-26 10:20 | [facility] Operative Report ---
Operative Report Operative Date Mar 26, 2017. Pre-Operative Diagnosis Full-thickness tear VMO repair into quad tendon insertion status post total knee arthroplasty left knee Post-Operative Diagnosis Full-thickness tear VMO repair and quadriceps tendon insertion status post total knee arthroplasty left knee Procedure(s) Performed Repair VMO quad insertion left knee Surgeon Polo Inspector Semiconductor Wafer Surgeon(s) Litzy Estimated Blood Loss 5 mL Findings Patient presents with complaints of a palpable defect or weakness to extension after having had a second second fall tearing her VMO repair presents with a palpable defect and tensor lag Specimens Microbiology: 1. Left Knee Synovial Fluid for gram stain, culture and sensitivity, anaerobic and aerobic bacteria. Complication(s) None Disposition Recovery Room / PACU Indications tear VMO repair extensor mechanism left knee status post total knee arthroplasty Description of Procedure After proper prepping draping the left lower extremity incision made in the region of the previous midline incision dissection was carried is a palpable defect full-thickness retraction tear of the VMO insertion into the quadriceps tendon of the left knee medial right retinacular arthrotomy patient had a fall flex knee retorqued presents with a palpable defect in weakness with extensor blob lag/surgery above findings were noted initial fluid from the synovial portion of the joint was sent for Gram stain stat cultures aerobic anaerobic via the of varus valgus stress to the knee ligaments in stable with no instability noted subsequently the VMO was repaired back to the quadriceps tendon the palpable defect repaired utilizing #5 FiberWire as well as #2 FiberWire wounds are irrigated with socialist sterile saline solution a pre-and post closure subcutaneous screws with a 2-0 Vicryl 3-0 Vicryl skin was closed skin clips sterile compressive dressing was placed patient placed in the immobilizer knee was ranged 0-50 without tension on the repair prior to closure of the knee was braces locked in full extension patient socially taken recovery in stable condition operative report dictated by Polo. Please note Nando WU was necessary for prepping draping retraction wound closure defect is subcutaneous and skin was necessary for the case I attest to the content of the Intraoperative Record and any orders documented therein. Any exceptions are noted below.
[2017-03-26] MEDS ORDERED: MoRPHine SULFATE 2 MG/ML CARP IV PRN (10:45)
[2017-03-26] MEDS ORDERED: MAGNESIUM HYDROXIDE SUSP 30 ML UDC PO PRN (10:45)
[2017-03-26] MEDS ORDERED: ALUMINUM/MAGNESIUM/SIMETH (MAALOX MAX) 30 ML UDC PO PRN (10:45)
[2017-03-26] MEDS ORDERED: ZOLPIDEM TARTRATE 5 MG TAB PO PRN (10:45)
[2017-03-26] MEDS ORDERED: BISACODYL 10 MG SUPP PR PRN (10:45)
[2017-03-26] MEDS ORDERED: SOD PHOSPHATE/SOD BIPHOSPHATE ENEMA 132 ML BTL PR PRN (10:45)
[2017-03-26] MEDS ORDERED: OXYCODONE HCL IR 5 MG TAB (IMMEDIATE RELEASE) PO PRN (10:45)
[2017-03-26] MEDS ORDERED: TRAMADOL HCL 50 MG TAB PO PRN (10:45)
[2017-03-26] MEDS ORDERED: PHARMACY GLYCEMIC MGMT CONSULT PRN (11:06)
--- NOTE | 2017-03-26 11:30 | DIAGNOSTIC IMAGING REPORT ---
LEFT KNEE 2 VIEWS CLINICAL HISTORY: Postop knee arthroplasty. COMPARISON: 12/24/2016 DISCUSSION: There are postsurgical changes of a total left knee arthroplasty, patellar resurfacing. The femoral and tibial components appear well seated. The skin gustavo and surgical drains have been removed. There is a suprapatellar joint effusion. There is air within the soft tissues. This likely relates to recent surgical intervention. IMPRESSION: Apparent total left knee arthroplasty revision. There is air within the soft tissues, likely secondary to recent surgical intervention Electronically signed by: Yury Fuentes M.D. 03/26/2017 11:29 AM Dictated Date/Time: 03/26/2017 11:27 AM
--- NOTE | 2017-03-26 11:34 | Anesthesiology Progress Note ---
Anesthesia Post Op Note Date & Time Mar 26, 2017 at 11:34 Vital Signs Pain Intensity: 0 Vital Signs Past 12 Hours Date Time Temp Pulse Resp B/P (MAP) Pulse Ox O2 Delivery O2 Flow Rate FiO2 03/26/17 11:15 36.8 64 16 116/61 100 Nasal Cannula 2 03/26/17 11:05 63 16 117/63 100 Nasal Cannula 2 03/26/17 10:55 57 16 126/60 100 Oxymask 10 03/26/17 10:45 59 16 127/63 100 Oxymask 10 03/26/17 10:37 37.2 64 16 129/65 100 Oxymask 10 03/26/17 07:00 36.5 69 20 123/66 (85) 98 Room Air Notes Mental Status: alert / awake / arousable, participated in evaluation Pt Amnestic to Procedure: Yes Nausea / Vomiting: adequately controlled Pain: adequately controlled Airway Patency, RR, SpO2: stable & adequate BP & HR: stable & adequate Hydration State: stable & adequate Neuraxial Anesthesia: was administered, sensory block is resolving Anesthetic Complications: no major complications apparent
[2017-03-26] MEDS ORDERED: GLUCOSE 10 TABS/TUBE PO PRN (12:15)
[2017-03-26] MEDS ORDERED: DEXTROSE 50% 50 ML SYR IV PRN (12:15)
[2017-03-26] MEDS ORDERED: GLUCAGON FOR INJ 1 MG VIAL SQ PRN (12:15)
[2017-03-26] MEDS ORDERED: GLUCOSE 40% GEL 15 GM TUBE PO PRN (12:15)
[2017-03-26] MEDS ORDERED: MoRPHine SULFATE 4 MG/ML 1 ML CARP\\VIAL IV PRN (12:15)
[2017-03-26] MEDS ORDERED: MoRPHine SULFATE 10 MG/ML CARP/VIAL IV PRN (12:15)
--- NOTE | 2017-03-26 12:22 | Pharmacy Progress Note ---
Glycemic Control Intl Consult Date of Service Mar 26, 2017. Scope Glycemic Pharmacist consulted by Nando Mcghee PA-C on 03/26/17 for glycemic control and to write orders per [facility] inpatient glycemic control protocol Objective Weight (Kilograms): 75.000 Accuchecks BSG (last 24hrs): Test 03/26/17 07:13 03/26/17 10:52 03/26/17 11:57 Bedside Glucose 93 mg/dl (70-90) 85 mg/dl (70-90) 85 mg/dl (70-90) HbA1c 5.5% on 01/24/17 Recent Pertinent Medications Outpatient Anti-diabetic Regimen: * Januvia 100mg PO daily * Glipizide ER 2.5mg PO daily Risk Factors for Insulin Resistance: * Recent Surgery * Diet Assessment & Plan ASSESSMENT: * 71yo T2DM female with excellent outpatient control per recent A1c * Pt is maintained on oral antidiabetic agents as an outpatient (Januvia + glipizide) * Oral agents are not recommended for inpatient use d/t drug interactions, changing PO intake, and difficulty titrating for acute hyper/hypoglycemia. ADA recommends re-initiating outpatient oral agents 1-2 days prior to discharge if/ when appropriate if they were held on admission. * Per ADA, some oral agents may be continued for inpatient use granted they do not cause hypoglycemia --> Januvia is one of the oral agents OK to continue for inpatient use. Will continue Januvia and hold Glipizide. * Since A1c so low, post-op hyperglycemia unlikely. Will start weight based correctional insulin scale only while glipizide on hold. PLAN FOR INPATIENT GLYCEMIC CONTROL: * Outpatient oral diabetes medications * Hold Glipizide d/t significant hypo risk * Continue Januvia 100mg PO daily, will give dose today since pt did not take dose this AM * Basal insulin * Likely not needed based on recent A1c * Bolus insulin * NovoLog per scale ACHS or Q6hrs while NPO * Goal Range: Low 110 mg/dL - High 140 mg/dL * Correction Factor: 30 mg/dL/unit * Nutritional / Prandial insulin per carb ratio: none needed * Please note that the plan above was derived based on current level of insulin resistance and hospital stress. These recommendations are appropriate for inpatient admission only. Plan of care upon discharge will need to be reassessed to avoid potential outpatient hypo/hyperglycemia. Thank you.
[2017-03-26] MEDS: SITAGLIPTIN 100 MG TAB PO SCH (12:34)
[2017-03-26] MEDS: ACETAMINOPHEN 500 MG TAB PO SCH ×2 (13:45→21:02)
[2017-03-26] MEDS: INSULIN ASPART 100 UNITS/ML 3 ML PEN SC SCH ×2 (17:15→20:58)
[2017-03-26] MEDS: SODIUM CHLORIDE 0.9% 1000ML 1,000 ML IV SCH ×2 (17:48→20:26)
[2017-03-26] MEDS: CEFAZOLIN IV 1,000 MG in SYRINGE 0 ML IV SCH (17:50)
[2017-03-26] MEDS ORDERED: NURSING VERBAL MED ORDER ONE (18:00)
[2017-03-26] MEDS: METOPROLOL SUCC 25MG EXT REL TAB PO SCH (20:59)
[2017-03-26] MEDS: CeleBREX 200 MG CAP PO SCH (21:00)
[2017-03-26] MEDS ORDERED: SENNA 8.6 MG TAB PO SCH (21:00)
[2017-03-26] MEDS ORDERED: DONEPEZIL HCL 5 MG TAB PO SCH (21:00)
[2017-03-26] MEDS ORDERED: SERTRALINE HCL 50 MG TAB PO SCH (21:00)
[2017-03-26] MEDS: ASPIRIN 81 MG ECTAB PO SCH (21:00)
[2017-03-26] MEDS: OXYBUTYNIN CHLORIDE 5 MG TAB PO SCH (21:00)
[2017-03-26] MEDS: DOCUSATE SODIUM 100 MG CAP PO SCH (21:00)
[2017-03-26] MEDS ORDERED: GABAPENTIN 300 MG CAP PO SCH (21:00)
[2017-03-27] MEDS: CEFAZOLIN IV 1,000 MG in SYRINGE 0 ML IV SCH (01:29)
[2017-03-27 03:25] VITALS: BP 134/73; PULSE 84; TEMP 36.6; O2SAT 98
[2017-03-27] MEDS: SODIUM CHLORIDE 0.9% 1000ML 1,000 ML IV SCH (03:37)
[2017-03-27] MEDS: ACETAMINOPHEN 500 MG TAB PO SCH ×2 (05:37→13:44)
[2017-03-27 06:49] LABS: HEMATOCRIT 30.1 % (37-47); MEAN CELL VOLUME 75.8 fL (80-100); MEAN CORPUSCULAR HEMOGLOBIN 24.4 pg (25-34); MEAN CORPUSCULAR HGB CONC 32.2 g/dl (32-36); MEAN PLATELET VOLUME 9.4 fL (7.4-10.4); PLATELET COUNT 168 K/uL (130-400); RED BLOOD COUNT 3.97 M/uL (4.2-5.4); WHITE BLOOD COUNT 6.69 K/uL (4.8-10.8)
[2017-03-27 07:12] LABS: PROTHROMBIN TIME (PATIENT) 10.7 SECONDS (9.0-12.0)
[2017-03-27 07:25] LABS: BUN/CREATININE RATIO 18.4 (10-20); CREATININE 0.49 mg/dl (0.60-1.20); POTASSIUM 4.1 mmol/L (3.5-5.1)
[2017-03-27 07:45] VITALS: BP 121/74; PULSE 65; TEMP 36.6; O2SAT 98
--- NOTE | 2017-03-27 08:06 | Orthopedic Progress Note ---
Orthopedic Progress Note Date of Service Mar 27, 2017. Subjective Post OP Day: 1 Reports: feeling well, Denies: chest pain, SOB, nausea / vomiting, light headedness, calf pain Objective calves soft nontender, N/V intact, capillary refill less than 2 sec., dressing C /D/I, A&O x3, toes mobile Date Time Temp Pulse Resp B/P (MAP) Pulse Ox O2 Delivery O2 Flow Rate FiO2 03/27/17 03:25 36.6 84 16 134/73 (93) 98 Room Air 03/26/17 23:25 Room Air 03/26/17 23:25 36.5 74 16 122/68 (86) 96 Room Air 03/26/17 20:01 36.7 78 18 115/62 (79) 94 Room Air 03/26/17 15:50 Room Air 03/26/17 15:09 69 17 124/74 (91) 98 Room Air 03/26/17 13:25 36.7 69 19 119/68 (85) 98 Room Air 03/26/17 12:35 36.6 71 18 120/72 (88) 100 Nasal Cannula 2.0 03/26/17 12:01 61 16 110/62 (78) 100 Room Air 03/26/17 11:35 Nasal Cannula 2.0 03/26/17 11:35 100 Nasal Cannula 2.0 03/26/17 11:35 36.5 68 18 128/74 (92) 100 Nasal Cannula 2.0 03/26/17 11:15 36.8 64 16 116/61 100 Nasal Cannula 2 03/26/17 11:05 63 16 117/63 100 Nasal Cannula 2 03/26/17 10:55 57 16 126/60 100 Oxymask 10 03/26/17 10:45 59 16 127/63 100 Oxymask 10 03/26/17 10:37 37.2 64 16 129/65 100 Oxymask 10 Laboratory Results 24 Hours: Test 03/27/17 06:28 Hematocrit 30.1 % Hemoglobin 9.7 g/dL Prothromb Time International Ratio 1.0 Prothrombin Time 10.7 SECONDS Assessment & Plan Assessment: POD#1 SP LEFT REVISION MEDIAL RETINACULAR REPAIR Plan: PT/OT- KNEE IMMOBILIZER AT ALL TIMES. NO KNEE FLEXION DVT PROPH- ASA 81MG BID PAIN MANAGEMENT DC PLANNING- DC HOME TODAY, NO PT.
[2017-03-27] MEDS ORDERED: RXC5 PO (08:09)
[2017-03-27] MEDS ORDERED: ONDA8TAB6 PO (08:09)
[2017-03-27] MEDS ORDERED: SENN-61 PO (08:09)
[2017-03-27] MEDS ORDERED: ASPI81TA28 PO (08:09)
[2017-03-27] MEDS ORDERED: ACET-24 PO (08:09)
[2017-03-27] MEDS ORDERED: CLB200 PO (08:09)
--- NOTE | 2017-03-27 08:11 | Discharge Instructions ---
Discharge Instructions Date of Service Mar 27, 2017. Admission Reason for Admission: Left Knee Medial Retinacular Tear Discharge Discharge Diagnosis / Problem: SP LEFT MEDIAL RETINACULAR REPAIR Discharge Goals Goal(s): Decrease discomfort, Improve function, Increase independence Activity Recommendations Activity Limitations: per Instructions/Follow-up section . Instructions / Follow-Up Instructions / Follow-Up ACTIVITY RECOMMENDATIONS: SELF CARE INSTRUCTIONS AFTER TOTAL KNEE REPLACEMENT A. MAINTAIN KNEE IMMOBILIZER AT ALL TIMES UNTIL OTHERWISE DIRECTED BY THE MAGALI TEAM. B. You may progress at your own pace from walking with a walker or crutches to a cane; then to no assistive devices. C. Make walking a part of your daily routine. Be up as much as comfortable with rest periods throughout the day. Rest with leg elevation is very important. Use the ice wrap frequently for the first 3-4 weeks. D. There are no restrictions on activities. You may ride in a car, shop, participate in legal paraprofessional and all social activities. E. Wear the long elastic stockings (FIONA hose) 20 hours a day for 2 weeks after surgery. They can be removed several times a day for laundering and for a bath. F. You may shower, no tub baths until cleared by your doctor. SPECIAL CARE INSTRUCTIONS: VERY IMPORTANT TO READ AND REVIEW A. There are a few signs you need to watch for after you are home. Call [facility] if you notice any of the followin. Increased severe knee pain. Some pain is expected especially when you exercise. 2. Increased swelling in your leg or knee; pain or swelling of the calf muscle in either lower leg. 3. Any fluid drainage from the incision. 4. Shortness of breath or chest pain. B. Please call [facility] at if you have any concerns or questions about your operation or recovery. The doctor or his nurse will return your call promptly. C. You must take antibiotics before dental work, bladder, bowel or other surgery. Your doctor will provide you with a permanent care to carry describing this precaution. IMPORTANT: * REMEMBER TO TAKE ASPIRIN, 81 MG, TWICE DAILY FOR 4 WEEKS UNLESS OTHERWISE DIRECTED. THIS IS YOUR BLOOD THINNER. * HIGH RISK PATIENTS MAY BE PRESCRIBED A STRONGER BLOOD THINNER. THIS WILL BE PROVIDED AT DISCHARGE. * CALL IF INCREASED PAIN, REDNESS, DRAINAGE OR FEVER GREATER THAT 101. * WEAR FIONA HOSE 20 HOURS PER DAY FOR 2 WEEKS. * Standard gustavo/no adhesive- Please keep incision clean and dry. You may shower. Jasper should be removed in 10-14 days at the office. This appointment is likely already scheduled for you. Please call if any increased redness, drainage, or swelling. FOLLOW UP VISIT: If appointment is not already scheduled: Please call [facility] to make a follow-up appointment for 2 weeks after your surgery at . Current Hospital Diet Patient's current hospital diet: Diabetes Type 2 Diet Discharge Diet Recommended Diet: Regular Diet Procedures Procedures Performed: Repair VMO quad insertion left knee Pending Studies Studies pending at discharge: no Laboratory Results Hemoglobin A1c Test 01/24/17 15:09 Range/Units Estimated Average Glucose 111 mg/dl Hemoglobin A1c 5.5 4.5-5.6 % Medical Emergencies . Who to Call and When: Medical Emergencies: If at any time you feel your situation is an emergency, please call 911 immediately. . Non-Emergent Contact Non-Emergency issues call your: Surgeon . "Provider Documentation" section prepared by Marika Jamison. . VTE Core Measure Inpt VTE Proph given/why not?: Other Anticoagulation, T.E.D. Stockings, SCD's
--- NOTE | 2017-03-27 08:41 | Clinical Documentation Query ---
CLINICAL DOCUMENTATION QUERY 71-y/o with full-thickness tear VMO repair into quad tendon insertion status post total knee arthroplasty left knee. 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 However the patient is on the following outpatient medications: Cefuroxime Axetil, Donepezil, Glipizide, Metoprolol, Prilosec, Zoloft, Januvia. In your clinical opinion is this patient being managed for: ( ) HTN ( ) Diabetes type II ( ) GERD ( ) Depression ( ) Afib ( ) tachycardia ( ) Alzheimer's ( ) Not Agree ( ) Other explanation of clinical findings (Please Explain) ( ) Unable to determine (Please Define) ( ) Need to Discuss The medical record reflects the following clinical findings, treatment, and risk factors. Clinical Indicators: Outpatient medications or equivalents reordered as inpatient Treatment: ASA, Celebrex, Cefuroxime, Aricept, SSC with insulin, Januvia, Zoloft, Protonix, Toprol XL, Risk Factors: Age, outpatient treatment Please clarify and document your clinical opinion in the progress notes and discharge summary. Terms such as "probable", "suspected", "likely", "questionable", "possible", or "still to be ruled out" are acceptable. IF IN AGREEMENT, YOU MUST DOCUMENT ABOVE DIAGNOSTIC STATEMENT IN DAILY PROGRESS NOTES AND DISCHARGE SUMMARY. This document is not part of the patient's record. Thank You, Peña Garcia RN [phone]
[2017-03-27] MEDS: DOCUSATE SODIUM 100 MG CAP PO SCH (09:00)
[2017-03-27] MEDS ORDERED: CEFUROXIME AXETIL 500 MG TAB PO SCH (09:00)
[2017-03-27] MEDS ORDERED: MULTIVITAMIN TAB PO SCH (09:00)
[2017-03-27] MEDS ORDERED: PANTOprazole SOD 40 MG TAB PO SCH (09:00)
[2017-03-27] MEDS ORDERED: CYANOCOBALAMIN 500 MCG TAB (VIT B-12) PO SCH (09:00)
[2017-03-27] MEDS: ASPIRIN 81 MG ECTAB PO SCH (09:04)
[2017-03-27] MEDS: SITAGLIPTIN 100 MG TAB PO SCH (09:05)
[2017-03-27] MEDS: OXYBUTYNIN CHLORIDE 5 MG TAB PO SCH (09:06)
[2017-03-27] MEDS: CeleBREX 200 MG CAP PO SCH (09:06)
[2017-03-27 09:09] VITALS: BP 112/63; PULSE 71
[2017-03-27] MEDS: METOPROLOL SUCC 25MG EXT REL TAB PO SCH (09:10)
[2017-03-27] MEDS: INSULIN ASPART 100 UNITS/ML 3 ML PEN SC SCH ×2 (09:11→13:07)
--- NOTE | 2017-03-27 11:28 | Discharge Summary ---
Orthopedic Discharge Summary Admission Date/Reason Mar 26, 2017 at 06:41 Left Knee Medial Retinacular Tear. Discharge Date/Disposition Mar 27, 2017 Home Diagnosis Principal Diagnosis: left knee quad tear Procedure(s) Performed Repair VMO quad insertion left knee Consultations NONE Medication Reconciliation New Medications: Ondansetron Hcl (Zofran) 8 Mg Tab 8 MG PO Q8 PRN for Nausea, #20 TAB Acetaminophen (Sb Non-Aspirin Extra Stre) 500 Mg Tab 1000 MG PO Q8H for 30 Days, #180 TAB Celecoxib (Celebrex) 200 Mg Cap 200 MG PO BID, #60 CAP Oxycodone HCl (Oxycodone HCl) 5 Mg Tab 5-10 MG PO Q4H PRN for Pain, #60 TAB Senna (Senokot) 8.6 Mg Tab 17.2 MG PO HS for 14 Days, TAB Changed Medications: Aspirin (Aspirin Ec) 81 Mg Tab 81 MG PO BID for 30 Days (Changed from: QAM) Continued Medications: Cefuroxime Axetil (Cefuroxime Axetil) 500 Mg Tab 1 TAB PO BID for 10 Days, #20 TAB Cyanocobalamin (Vitamin B-12) 500 Mcg Tab 500 MCG PO DAILY, TAB Donepezil Hydrochloride (Donepezil Hcl) 5 Mg Tab 1 TAB PO QPM for 90 Days, TAB 3 Refills Gabapentin (Neurontin) 300 Mg Cap 300 MG PO QPM, CAP Glipizide (Glipizide Er) 2.5 Mg Tab 1 TAB PO QAM, TAB 3 Refills Metoprolol Succ (Toprol Xl) (Toprol-Xl) 25 Mg Tabcr 12.5 MG PO BID, #30 TAB Omeprazole (Prilosec) 20 Mg Capcr 20 MG PO QAM, CAP Oxybutynin Chloride (Ditropan) 5 Mg Tab 1 TAB PO BID for 30 Days, #60 TAB 11 Refills Sertraline (Zoloft) 50 Mg Tab 50 MG PO QPM, TAB Sitagliptin Phosphate (Januvia) 100 Mg Tab 100 MG PO QAM, TAB Admission Physical Exam As per Admitting History & Physical. Hospital Course Patient was a same day admission after undergoing a successful Left knee quad/ VMO repair. she tolerated the procedure well. Post-operatively, her activity was progressed and well tolerated. Please refer to daily progress notes and PT notes for complete details. After exam on 03/27/17, patient felt to be stable for discharge home. Patient will f/u in the office in 2 weeks for further evaluation including x-rays and incision check, sooner if having any issues or concerns. Below are pertinent labs/studies during their hospital stay: Last Resulted CBC 03/27/17 06:28 Last Resulted BMP 03/27/17 06:28 Last Vital Signs Documentation Date Time Temp Pulse Resp B/P (MAP) Pulse Ox O2 Delivery O2 Flow Rate FiO2 03/27/17 09:09 71 112/63 (79) 03/27/17 07:45 36.6 17 98 Nasal Cannula 03/26/17 12:35 2.0 Discharge Instructions Admission Reason for Admission: Left Knee Medial Retinacular Tear Discharge Discharge Diagnosis / Problem: SP LEFT MEDIAL RETINACULAR REPAIR Discharge Goals Goal(s): Decrease discomfort, Improve function, Increase independence Activity Recommendations Activity Limitations: per Instructions/Follow-up section . Instructions / Follow-Up Instructions / Follow-Up ACTIVITY RECOMMENDATIONS: SELF CARE INSTRUCTIONS AFTER TOTAL KNEE REPLACEMENT A. MAINTAIN KNEE IMMOBILIZER AT ALL TIMES UNTIL OTHERWISE DIRECTED BY THE MAGALI TEAM. B. You may progress at your own pace from walking with a walker or crutches to a cane; then to no assistive devices. C. Make walking a part of your daily routine. Be up as much as comfortable with rest periods throughout the day. Rest with leg elevation is very important. Use the ice wrap frequently for the first 3-4 weeks. D. There are no restrictions on activities. You may ride in a car, shop, participate in help desk engineer and all social activities. E. Wear the long elastic stockings (FIONA hose) 20 hours a day for 2 weeks after surgery. They can be removed several times a day for laundering and for a bath. F. You may shower, no tub baths until cleared by your doctor. SPECIAL CARE INSTRUCTIONS: VERY IMPORTANT TO READ AND REVIEW A. There are a few signs you need to watch for after you are home. Call [facility] if you notice any of the followin. Increased severe knee pain. Some pain is expected especially when you exercise. 2. Increased swelling in your leg or knee; pain or swelling of the calf muscle in either lower leg. 3. Any fluid drainage from the incision. 4. Shortness of breath or chest pain. B. Please call [facility] at if you have any concerns or questions about your operation or recovery. The doctor or his nurse will return your call promptly. C. You must take antibiotics before dental work, bladder, bowel or other surgery. Your doctor will provide you with a permanent care to carry describing this precaution. IMPORTANT: * REMEMBER TO TAKE ASPIRIN, 81 MG, TWICE DAILY FOR 4 WEEKS UNLESS OTHERWISE DIRECTED. THIS IS YOUR BLOOD THINNER. * HIGH RISK PATIENTS MAY BE PRESCRIBED A STRONGER BLOOD THINNER. THIS WILL BE PROVIDED AT DISCHARGE. * CALL IF INCREASED PAIN, REDNESS, DRAINAGE OR FEVER GREATER THAT 101. * WEAR FIONA HOSE 20 HOURS PER DAY FOR 2 WEEKS. * Standard gustavo/no adhesive- Please keep incision clean and dry. You may shower. Gustavo should be removed in 10-14 days at the office. This appointment is likely already scheduled for you. Please call if any increased redness, drainage, or swelling. FOLLOW UP VISIT: If appointment is not already scheduled: Please call [facility] to make a follow-up appointment for 2 weeks after your surgery at .
[2017-03-27 11:35] VITALS: BP 120/69; PULSE 76; TEMP 36.7; O2SAT 99
[2017-03-27 13:27] VITALS: BP 120/69; PULSE 76; TEMP 36.7; O2SAT 99
== END 2017-03-27 14:18 | disposition home health service (06) | DRG 502 ==
LOC: C.ACU 06:31 → C.3E 06:41 → ENRESERV 11:17
PROVIDERS: ADMIT Orthopaedic Surgery; ATTEND Orthopaedic Surgery
PROC: 0KST0ZZ Reposition Left Lower Leg Muscle, Open Approach (ICD-10-PCS; principal; 2017-03-26 09:00)
DX: M62.162 Other rupture of muscle (nontraumatic), left lower leg (principal); Z96.652 Presence of left artificial knee joint; E11.9 Type 2 diabetes mellitus without complications; K21.9 Gastro-esophageal reflux disease without esophagitis; Z79.82 Long term (current) use of aspirin; Z79.84 Long term (current) use of oral hypoglycemic drugs; Z79.899 Other long term (current) drug therapy